=== PATIENT | male | born 2000 | race Two or more races ===

== ENCOUNTER 2020-05-16 00:16 | Emergency (ER) | payer BC ==
[~2020-05-16] VITALS: Ht 175.3 cm; Wt 83.0 kg
[2020-05-16 00:37] VITALS: BP 147/93
== END 2020-05-16 01:50 | disposition home or self-care (01) ==
LOC: ER 00:23
DX: K04.7 Periapical abscess without sinus (principal); K08.9 Disorder of teeth and supporting structures, unspecified